=== PATIENT | female | born 1955 | race Two or more races ===

== ENCOUNTER 2023-12-04 12:32 | Emergency (ER) | payer OTHER ==
[~2023-12-04] VITALS: Ht 165.1 cm; Wt 54.9 kg
[2023-12-04] MEDS ORDERED: CRESTOR10 MG PO (13:25)
[2023-12-04] MEDS ORDERED: HYDROCODONE/CHLORPHEN P-STIREX 5 ML ML PO STA (13:53)
[2023-12-04 15:26] LABS: HEMATOCRIT 40.7 % (36.0-45.00); HEMOGLOBIN 13.7 g/dL (12.0-15.00); MEAN CELL VOLUME 86.7 fL (80.00-100.00); MEAN CORPUSCULAR HEMOGLOBIN 29.1 pg (27.00-32.0); MEAN CORPUSCULAR HGB CONC 33.6 g/dl (32.0-36.0); PLATELET COUNT 233 K/uL (150-450); RED CELL DISTRIBUTION WIDTH 12.7 % (11.5-14.5)
== END 2023-12-04 15:46 | disposition home or self-care (01) ==
LOC: ER 12:33
PROVIDERS: General Practice
DX: U07.1 COVID-19 (principal); R53.81 Other malaise

== ENCOUNTER 2024-12-26 09:47 | Emergency (ER) | payer OTHER ==
[~2024-12-26] VITALS: Ht 165.1 cm; Wt 55.8 kg
[~2024-12-26 09:47] MED LIST: CRESTOR10 MG PO; ZANAFLEX2 MG PO
[2024-12-26] MEDS ORDERED: KETOROLAC TROMETHAMINE 60 MG VIAL IM ONE (10:15)
[2024-12-26] MEDS ORDERED: NORFLEX100MG PO (11:55)
== END 2024-12-26 12:47 | disposition home or self-care (01) ==
LOC: ER 09:47
DX: S09.19XA Other specified injury of muscle and tendon of head, initial encounter (principal); M25.512 Pain in left shoulder; W18.39XA Other fall on same level, initial encounter; Y93.89 Activity, other specified; Y92.89 Other specified places as the place of occurrence of the external cause; M85.88 Other specified disorders of bone density and structure, other site
CPT/HCPCS: 70450; 72070; 72125; 72170; 73030; 96372; 99284; J1885

== ENCOUNTER 2025-05-09 07:06 | Outpatient (CLI) | payer OTHER ==
[~2025-05-09 07:06] MED LIST changes: +GABAPENTIN100 MG PO; +NORFLEX100MG PO
== END 2025-05-09 07:07 | disposition home or self-care (01) ==
LOC: NUCLEAR 07:06
PROVIDERS: ATTEND Specialist
DX: I20.9 Angina pectoris, unspecified (principal)
CPT/HCPCS: 78452; 93017; A9500